=== PATIENT | male | born 1965 | race American Indian/Alaskan Native ===

== ENCOUNTER 2020-02-16 15:49 | Emergency (ER) | payer SELFPAY ==
[2020-02-16] MEDS ORDERED: cloNIDine 0.2 MG TAB PO ONE (16:22)
--- NOTE | 2020-02-16 16:26 | Emergency Department Report ---
HPI - General Chief Complaint: High BP Time Seen by Provider: 02/16/20 16:14 - HPI HPI: Room 26 The patient is a 54-year-old male present with a chief complaint of hypertension and headache. Patient states he developed headache described as heaviness y esterday. Patient states he noticed his blood pressure was elevated at 238/128 so he decided to take his blood pressure medication. Patient states he has been taking his blood pressure Medication as needed but not daily as prescribed. Patient denies nausea or vomiting ED Past Medical Hx - Past Medical History Previous Medical History?: Yes Hx Hypertension: Yes - Surgical History Past Surgical History?: No - Family History Family history: no significant - Social History Smoking Status: Never Smoker Substance Use Type: None (Denies illicit drug use) - Medications Home Medications: Home Medications Medication Instructions Recorded Confirmed Last Taken Type Amoxicillin [Amoxicillin TAB] 875 mg PO BID #14 tablet 02/16/20 Unknown Rx ED Review of Systems ROS: Stated complaint: HBP Other details as noted in HPI Constitutional: no symptoms reported Respiratory: no symptoms reported Endocrine: no symptoms reported Gastrointestinal: denies: nausea, vomiting Neurological: headache Physical Exam - Physical Exam Vital Signs: Vital Signs 02/16/20 16:07 Temperature 98.1 F Pulse Rate 76 Respiratory 12 Rate Blood Pressure 200/128 [Right] O2 Sat by Pulse 100 Oximetry Physical Exam: GENERAL: The patient is well-developed well-nourished male lying on stretcher not appearing to be in acute distress. [] HEENT: Normocephalic. Atraumatic. Extraocular motions are intact. Patient has moist mucous membranes. NECK: Supple. Trachea midline CHEST/LUNGS: Clear to auscultation. There is no respiratory distress noted. HEART/CARDIOVASCULAR: Regular. There is no tachycardia. There is no gallop rub or murmur. ABDOMEN: Abdomen is soft, nontender. Patient has normal bowel sounds. There is no abdominal distention. SKIN: There is no rash. There is no edema. There is no diaphoresis. NEURO: The patient is awake, alert, and oriented. The patient is cooperative. The patient has no focal neurologic deficits. The patient has normal speech. Cranial nerves II through XII grossly intact MUSCULOSKELETAL: There is no evidence of acute injury. ED Course Vital Signs 02/16/20 16:07 Temperature 98.1 F Pulse Rate 76 Respiratory 12 Rate Blood Pressure 200/128 [Right] O2 Sat by Pulse 100 Oximetry - Reevaluation(s) Reevaluation #1: 02/16/20 19:11 BP improved to 175/107 ED Medical Decision Making - Radiology Data Radiology results: report reviewed (CT head), image reviewed (CT head) [facility] [address] [place] [address] Cat Scan Report Signed Patient: JAVY SÁNCHEZ I MR#: [id number] : 1965 Acct:[id number] Age/Sex: 54 / M ADM Date: 02/16/20 Loc: ED Attending Dr: Ordering Physician: JAIME MATTHEW MD Date of Service: 02/16/20 Procedure(s): CT head/brain wo con Accession Number(s): [id number] cc: JAIME MATTHEW MD CT HEAD WITHOUT CONTRAST INDICATION / CLINICAL INFORMATION: Headache. Hypertensive patient. TECHNIQUE: All CT scans at this location are performed using CT dose reduction for ALARA by means of automated exposure control. COMPARISON: None available. FINDINGS: HEMORRHAGE: No evidence of intracranial hemorrhage or extra-axial fluid collection. EXTRA-AXIAL SPACES: Cortical sulci, sylvian fissures and basilar cisterns have an unremarkable appearance. VENTRICULAR SY STEM: The ventricular system is of normal size and configuration. CEREBRAL PARENCHYMA: No areas of abnormal brain parenchymal attenuation are identified. There is no indication of recent infarction. MIDLINE SHIFT OR HERNIATION: There is no mass effect. CEREBELLUM / BRAINSTEM: Brainstem and cerebellum have an unremarkable appearance. MIDLINE STRUCTURES:No abnormalities of the pituitary gland or pineal region are identified. INTRACRANIAL VESSELS:No abnormalities are identified on this noncontrast head CT. ORBITS: visualized portions of the orbits have an unremarkable appearance. SOFT TISSUES of HEAD: No significant abnormality. CALVARIUM: Evaluation of bone windows reveals no abnormalities. PARANASAL SINUSES / MASTOID AIR CELLS: There is complete opacification of visualized nasal cavity. Nasal polyposis is suspected. Near-complete opacification of the left maxillary sinus, bilateral ethmoid air cells, bilateral sphenoid sinuses and bilateral frontal sinuses is observed. Mucosal disease is present in the right maxillary sinus. Findings suggest nasal polyposis with obstruction of the air passageways of the OM U resulting in pansinusitis. The cribriform plate is intact. ADDITIONAL FINDINGS: A small radiopaque foreign bodies observed anterior to the right maxilla at the level of the inferior orbital rim. IMPRESSION: 1. No acute intracranial abnormality. 2. Opacification of the visualized portions of the nasal cavity and pansinusitis as described above. Signer Name: Matthieu Tong MD Signed: 02/16/2020 5:30 PM Workstation Name: [id number] Transcribed By: Dictated By: Matthieu Tong MD Electronically Authenticated By: Matthieu Tong MD Signed Date/Time: 02/16/201729 DD/ 24 TD/TT: - Differential Diagnosis Hypertensive urgency, hypertensive emergency, uncontrolled hypertension Critical care attestation.: If time is entered above; I have spent that time in minutes in the direct care of this critically ill patient, excluding procedure time. ED Disposition Clinical Impression: Hypertension, Headache Disposition: DC-01 TO HOME OR SELFCARE Is pt being admited?: No Does the pt Need Aspirin: No Condition: Stable Instructions: Hypertension (ED) Additional Instructions: Return to the emergency department should you develop worsening symptoms, inability to tolerate food or liquids, high fever or any other concerns Prescriptions: Amoxicillin [Amoxicillin TAB] 875 mg PO BID #14 tablet Referrals: [facility] [Provider Group] - 3-5 Days ROHIT FOX MD [Staff Physician] - 3-5 Days (Dr. Tejeda is an guide plant (ear nose and throat doctor). Please follow-up with him for further evaluation of your nasal polyps and pansinusitis) Time of Disposition: 19:12
--- NOTE | 2020-02-16 17:34 | Cat Scan Report ---
CT HEAD WITHOUT CONTRAST INDICATION / CLINICAL INFORMATION: Headache. Hypertensive patient. TECHNIQUE: All CT scans at this location are performed using CT dose reduction for ALARA by means of automated e xposure control. COMPARISON: None available. FINDINGS: HEMORRHAGE: No evidence of intracranial hemorrhage or extra-axial fluid collection. EXTRA-AXIAL SPACES: Cortical sulci, sylvian fissures and basilar cisterns have an unremarkable appear ance. VENTRICULAR SYSTEM: The ventricular system is of normal size and configuration. CEREBRAL PARENCHYMA: No areas of abnormal brain parenchymal attenuation are identified. There is no i ndication of recent infarction. MIDLINE SHIFT OR HERNIATION: There is no mass effect. CEREBELLUM / BRAINSTEM: Brainstem and cerebellum have an unremarkable appearance. MIDLINE STRUCTURES:No abnormalities of the pituitary gland or pineal region are identified. INTRACRANIAL VESSELS:No abnormalities are identified on this noncontrast head CT. ORBITS: visualized portions of the orbits have an unremarkable appearance. SOFT TISSUES of HEAD: No significant abnormality. CALVARIUM: Evaluation of bone windows reveals no abnormalities. PARANASAL SINUSES / MASTOID AIR CELLS: There is complete opacification of visualized nasal cavity. Na maryam polyposis is suspected. Near-complete opacification of the left maxillary sinus, bilateral ethmoi d air cells, bilateral sphenoid sinuses and bilateral frontal sinuses is observed. Mucosal disease is present in the right maxillary sinus. Findings suggest nasal polyposis with obstruction of the air p assageways of the OM U resulting in pansinusitis. The cribriform plate is intact. ADDITIONAL FINDINGS: A small radiopaque foreign bodies observed anterior to the right maxilla at the level of the inferior orbital rim. IMPRESSION: 1. No acute intracranial abnormality. 2. Opacification of the visualized portions of the nasal cavity and pansinusitis as described above. Signer Name: Matthieu Tong MD Signed: 02/16/2020 5:30 PM Workstation Name: [id number]
[2020-02-16 20:21] VITALS: BP 175/107
== END 2020-02-16 19:30 | disposition home or self-care (01) ==
LOC: ED 15:49
DX: I10 Essential (primary) hypertension (principal)
CPT/HCPCS: 70450; 96374